=== PATIENT | male | born 1985 | race Two or more races ===

== ENCOUNTER 2020-09-23 10:51 | Outpatient (REF) | payer OTHER, SELFPAY | END 2020-09-23 10:52 | disposition home or self-care (01) | LOC: HO.HMGCLDS 10:51 | PROVIDERS: PCP Internal Medicine; Visit Provider Internal Medicine | DX: Z20.822 Contact with and (suspected) exposure to COVID-19 (principal) | CPT/HCPCS: C9803; U0003; U0005 ==

== ENCOUNTER 2021-07-23 08:19 | Emergency (ER) | payer OTHER, SELFPAY | END 2021-07-23 09:54 | disposition left against medical advice (07) | PROVIDERS: Emergency Provider Emergency Medicine | DX: S39.92XA Unspecified injury of lower back, initial encounter (principal); V49.9XXA Car occupant (driver) (passenger) injured in unspecified traffic accident, initial encounter; Y93.9 Activity, unspecified; Y92.9 Unspecified place or not applicable; Y99.9 Unspecified external cause status ==

== ENCOUNTER 2025-01-11 11:26 | Outpatient (AMB) | payer OTHER, SELFPAY ==
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
[2025-01-11 11:41] VITALS: BMI 26.3
== END 2025-01-11 12:28 | disposition home or self-care (01) ==
LOC: HO.HPHYS 11:27
PROVIDERS: PCP Family Medicine; Visit Provider Physician Assistant
DX: M54.16 Radiculopathy, lumbar region (principal); M47.816 Spondylosis without myelopathy or radiculopathy, lumbar region
CPT/HCPCS: 99204

== ENCOUNTER → 2025-01-11 11:26 | Outpatient (BNVA) | payer OTHER, SELFPAY | PROVIDERS: PCP Family Medicine; Visit Provider Physician Assistant | DX: M54.16 Radiculopathy, lumbar region (principal); M47.816 Spondylosis without myelopathy or radiculopathy, lumbar region | CPT/HCPCS: 99202 ==

== ENCOUNTER 2025-02-05 13:04 | Outpatient (AMB) | payer OTHER, SELFPAY ==
[2025-02-05 13:11] VITALS: BMI 26.3
--- NOTE | 2025-02-05 13:11 | A.PHYSOV_ITS ---
Vital Signs 02/05/25 13:11 Height 5 ft 7 in Weight 168 lb BMI 26.3 Intake Visit Reasons: MRI followup Intake Note: Patient is a 40 year old male in office today for his lumbar mri results. 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 He reports low back pain that extends across the middle from left to right, but is predominantly on the right side. The patient has previously tried oral steroids and nurse wound care, both of which provided temporary relief. Prior imaging has identified disc bulges at L3- 4 and L4-5, lumbar arthritis, moderate to severe foraminal narrowing, and a synovial cyst. The synovial cyst, located on the right, is a result of inflammation from facet joint arthritis and is contributing to nerve compression. Patient has failed conservative treatment. Has a pain level today of 7/10 primarily on the right side. Pain Description - Location: The patient reports back pain across the middle, from left to right, but feels it mostly on the right side. - Radiation: The patient denies that the pain goes into his back. - Relieving Factors: He experiences temporary relief from oral steroids and chiropractic adjustments. [facility] Surgical History (Updated 01/11/25 @ 11:46 by Barby Javed MA) H/O hernia repair (Unknown) History of carpal tunnel surgery (Unknown) Social History (Updated 01/11/25 @ 11:47 by Barby Javed MA) Alcohol intake: current Alcohol intake frequency: holidays/special occasions only Patient Tobacco Use Status: Former Tobacco user Substance Use Type: Marijuana Current occupational status: employed Review of Systems Narrative Review of Systems - Musculoskeletal: Reports back pain and shoulder pain. - Neurological: Denies pain radiating into his back. Physical Exam Exam Exam: Physical Exam Lumbar Spine: Examination of his lumbar spine, there is no visible swelling or deformity. He is tender to the right lower lumbar facets. He is otherwise nontender. Full range of motion of his lumbar spine. He does have an increase in pain with facet loading. Special Tests: Lhermittes sign was negative Heel Toe walk is normal Left straight leg raise: Negative Right straight leg raise: Negative Special tests Shonna test is negative Ganslen's test is negative SI Joint compression test negative Raymond test negative Piriformis stretch is negative Lower Extremities: Full range of motion bilateral lower extremities. No calf pain or edema. Neuro: Sensation: Intact to lower extremities bilaterally Strength L2 (Psoas): 5/5 on the left and 5/5 on the right. L3 (Quads): 5/5 on the left and 5/5 on the right. L4 (Ant tibialis): 5/5 on the left and 5/5 on the right. L5 (EHL) 5/5 on the left and 5/5 on the right. S1 (Gastroc): 5/5 on the left and 5/5 on the right. DTR L4: (Patellar) Left 2 Right 2 S1: (Achilles) Left 2 Right 2 Babinski Downgoing No pathologic clonus. No involuntary movement. Vital Signs: BMI result Body Mass Index 26.3 Assessment & Plan Assessment & Plan (1) Lumbar radiculopathy: Code(s): M54.16 - Radiculopathy, lumbar region Category: Medical (2) Lumbar spondylosis: Code(s): M47.816 - Spondylosis without myelopathy or radiculopathy, lumbar region Category: Medical Plan Pain Management - Analgesia: The patient has tried oral steroids, which he reports work temporarily. Plan Patient was informed and verbally consented to the use of an ambient scribe for clinic note documentation during this visit. 1. Low Back Pain The patient's low back pain is attributed to imaging findings of lumbar arthritis, disc bulges at L3-4 and L4-5, moderate to severe foraminal stenosis, and a synovial cyst on the right side causing nerve compression, which correlates with his predominantly right-sided symptoms. After discussing conservative options such as physical therapy, nurse wound care, and acupuncture, as well as surgical options, the plan is to proceed with an injection-based procedure. The procedure will target the right-sided facet joint to rupture the synovial cyst and will include a cortisone injection to decrease nerve inflammation. The expected benefit is at least a 50% reduction in symptoms for 3 to 6 months. Risks of infection, bleeding, and nerve injury were discussed, with the patient acknowledging the primary risk is lack of efficacy. The patient has elected to have the procedure performed under sedation. The procedure will be scheduled upon receipt of insurance authorization. 2. Shoulder Pain The patient mentioned shoulder pain, but this was not further evaluated during the visit. Discussion Notes I reviewed the patient's imaging findings with him, explaining that his low back pain is likely caused by a combination of lumbar arthritis, disc bulges at L3-4 and L4-5, foraminal narrowing, and a synovial cyst on the right side that is compressing a nerve. I outlined various treatment options, including conservative measures like physical therapy and nurse wound care, and more invasive options like surgery. I recommended a two-part injection procedure targeting the right side, which I believe will help both sides. The first part involves injecting fluid to rupture the cyst, and the second part involves a cortisone injection to calm the nerve inflammation. I informed the patient that this procedure could provide at least 50% relief for 3 to 6 months and is repeatable if effective, but is not a cure. We discussed the risks, including infection, bleeding, and nerve injury, and I noted that the most common negative outcome is that the procedure does not provide relief. The patient consented to the procedure and opted for sedation. I advised him that we would proceed with scheduling upon insurance authorization. Patient Instructions - Your back pain is caused by arthritis, bulging discs, and a fluid-filled sac called a cyst that is pressing on a nerve in your lower back. - We have discussed and planned a two-part injection procedure for your back to help with the pain. - The goal of the injection is to break the fluid sac and use a strong anti- inflammatory medicine (cortisone) to reduce swelling around the nerve. - You have decided to have sedation, meaning you will be asleep, for the procedure. - Possible risks include infection, bleeding, or nerve damage, but the most common outcome if it doesn't work is simply no change in your pain. - Our office will contact you to schedule the procedure as soon as your i nsurance gives its approval. - You can take time to think about this and discuss it with your family. Orders: Referrals Physiatry Procedure Notification M47.816 - Spondylosis without myelopathy or radiculopathy, lumbar region, M54.16 - Radiculopathy, lumbar region Coding Level of Care Code Tele Est Pt Level 3 (71733) Diagnoses Lumbar radiculopathy M54.16 Lumbar spondylosis M47.816
--- OUTSIDE RECORDS SUMMARY | 2025-02-05 17:12 | XMS_ITS | Encounter Summary ---
Author Organization [facility] Address [address] [place] [address] Care Team Providers Care Medical Apparatus Model Maker Name Role Phone Adrianna Hutton MD Primary Care Pr ovider Encounter Details Date Type Department Care Team (Late st Contact Info) Description 12/14/2024 Results Follow-Up Adult Medicine [address] [id number] Ann Dia PA [address] [place] [address] Social History Tobacco Use Types Packs/Day Years Used Date Smoking Tobacco: Never Smokeless Tobacco: Never Alcohol Use Standard Drinks/Week Comments Yes 0 (1 standard drink = 0.6 oz pur e alcohol) Housing Instability Answer Date Recorde d Are you worried that in the next 2 months you may not have stable housing? No 01/28/2024 Food Access & Nutrition Answer Date Rec orded Do you have access to a vari ety of food including fruits and vegetables? Yes 01/28/2024 Access to Healthcare Answer Date Record ed Within the last 3 months, ho w many times did you visit the emergency department for your medical care? 0 01/28/2024 Health Literacy Answer Date Recorded How often do you need to hav e someone help you when you read instructions, pamphlets, or other written material from your doctor or pharmacy? Patient declined 01/28/2024 Caregiver: How often do you need to have someone help you when you read instructions, pamphlets, or other written material from your doctor or pharmacy? Not on file 024 Financial Risk Answer Date Recorded How hard is it for you to pa y for the very basics like food, housing, medical care, and air conditioning / heating? Unable to respond 01/28/2024 Transportation Answer Date Recorded Has the lack of transportati on kept you from meetings, work, or from getting things needed for daily living? No Has the lack of transportati on kept you from medical appointments or from getting medications? No 01/28/2024 Social Isolation Answer Date Recorded How often do you feel lonely or isolated from those around you? Patient declined 01/28/2024 Food Risk Answer Date Recorded Within the past 12 months we worried whether our food would run out before we got money to buy more. Never true 01/28/2024 Within the past 12 months th e food we bought just didn't last and we didn't have money to get more. Never true 01/28/2024 Dependent Care Answer Date Recorded Do you need help finding or paying for care for your loved ones. For example, child psychology teacher or elderly care for an older adult? No 01/28/2024 Education Answer Date Recorded Do you think completing more education or training, like finishing a GED, going to college, or learning a trade, would be helpful for you? Patient declined 01/28/2024 Employment and Income Answer Date Recor ded During the last four weeks, have you been actively looking for work? Yes 01/28/2024 Living Situation Answer Date Recorded What is your living situation? Unrecognized valu e 01/28/2024 Sex and Gender Information Value Date Recorded Sex Assigned at Male 01/28/2024 1:45 PM EST Legal Sex Male 2:59 AM EST Gender Identity Male 01/28/2024 1:45 PM EST Sexual Orientation Not on file documented as of this encounter Plan of Treatment Not on file documented as of this encounter Visit Diagnoses Not on filedocumented in this encounter Additional Health Concerns Assessment Noted Time PHQ-9 Depression Total Score: 0 01/28/20 24 2:07 PM EST documented as of this encounter Care Teams Medical Apparatus Model Maker Relationship Specialty Start Date End Date Adrianna Hutton MD [address] [place] [phone] PCP - General 02/03/23 documented as of this encounter
--- OUTSIDE RECORDS SUMMARY | 2025-02-05 17:12 | XMS_ITS | Clinical Summary ---
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 10/25/2020 Active Active Problems Problem Noted Date Diagnosed Date Suicidal risk 10/22/2013 Marijuana use 04/11/2013 Major depression 04/11/2013 Encounters Date Type Department Care Team Description 01/20/2025 7:12 AM EST - 01/20/2025 11:59 PM EST Hospital Encounter [facility] MRI [address] [place] [id number] Intervertebral disc disorders with radiculopathy, lumbar region Discharge Disposition: Home or Self Care 12/14/2024 Results Follow-Up Adult Medicine [facility] [address], [place] [phone] Ann Dia PA 12/13/2024 4:31 PM EDT - 12/13/2024 11:59 PM EDT Hospital Encounter [facility] [address] [phone] Acute bilateral low back pain without sciatica Discharge Disposition: Home or Self Care 12/13/2024 4:00 PM EDT Office Visit Adult Medicine [address] [phone] Ann Dia PA Acute bilateral low back pain without sciatica (Primary Dx) 12/11/2024 Telephone Adult Medicine [address] [phone] Adrianna Hutton MD from Last 3 Months Immunizations Immunization Administration Dates Next Due Tdap Tetanus diptheria acell ular pertussis (Boostrix; Adacel) 7yo and older 02/02/2024,01/13/2012 Surgical History Surgery Date Site/Laterality Comments LITHOTRIPSY PROCEDURE: HISTORICAL LITHOTRIPSY Family History Medical History Relation Name Comments Asthma Sister 1 Asthma Sister 2 Autoimmune disease Neg Hx Breast cancer Neg Hx Colon cancer Neg Hx Coronary artery disease Neg Hx Diabetes Neg Hx Heart attack Neg Hx Heart failure Neg Hx Hyperlipidemia Neg Hx Hypertension Neg Hx Mental illness Neg Hx Prostate cancer Neg Hx Sleep apnea Neg Hx Thyroid disease Neg Hx Relation Name Status Comments Father Alive Maternal Grandfather Maternal Grandmother Mother Alive Paternal Grandfather Paternal Grandmother Sister 1 Alive Sister 2 Alive Social History Tobacco Use Types Packs/Day Years Used Date Smoking Tobacco: Never Smokeless Tobacco: Never Tobacco Cessation:Counseling Given: Not Answered Alcohol Use Standard Drinks/Week Comments Yes 0 [...] Record ed Within the last 3 months, zeeshan w many times did you visit the [...] care for your loved ones. For example, children's choir director or elderly care for an older adult? [...] PM EST Sexual Orientation Not on file Last Filed Vital Signs Vital Sign Reading Time Taken Comments Blood Pressure 128/71 12/13/2024 4:01 PM EDT Pulse 100 12/13/2024 4:01 PM EDT Temperature 36.8 C (98.3 F) 12/13/2024 4:01 PM EDT Respiratory Rate 16 12/13/2024 4:01 PM EDT Oxygen Saturation 99% 01/09/2024 7:56 AM EST Inhaled Oxygen Concentration - - Weight 76.2 kg (168 lb) 12/13/2024 4:01 PM EDT Height 170.2 cm (5' 7 ) 12/13/2024 4:01 PM EDT Body Mass Index 26.31 12/13/2024 4:01 PM EDT Plan of Treatment Health Maintenance Due Date Last Done Comments Hepatitis B Vaccines (1 of 3 - 19+ 3-dose series) 2002 HPV Vaccines (1 - 3-dose SCD M series) 2010 HIV Screening 01/31/2022 Medicare Annual Wellness Visit 01/31/2022 Depression Screening 02/29/2024 01/28/2024 COVID-19 Vaccine (3 - 2024-2 6 season) 2024 04/21/2021, 03/11/2021 Influenza Vaccine (#1) 2024 03/05/2008 Social Influencers of Health Screening 01/27/2025 01/28/2024 Cholesterol Screening (Lipid Panel) 02/26/2025 02/27/2020 DTaP,Tdap,and Td Vaccines (4 - Td or Tdap) 02/01/2034 02/02/2024, 09/05/2015, 01/13/2012 RSV Immunization Adult Patients (1 - 1-dose 75+ series) 2058 Hepatitis C Screening Completed 02/27/2020 HIB Vaccines Aged Out No longer eligi ble based on patient's age to complete this topic Hepatitis A Vaccines Aged Out No long er eligible based on patient's age to complete this topic IPV Vaccines Aged Out No longer eligi ble based on patient's age to complete this topic MMR Vaccines Aged Out No longer eligi ble based on patient's age to complete this topic Meningococcal ACWY Vaccine Aged Out N o longer eligible based on patient's age to complete this topic Meningococcal B Vaccine Aged Out No l onger eligible based on patient's age to complete this topic Pneumococcal Vaccine: Pediatrics (0 to 5 Years) and At-Risk Patients (6 to 49 Years) Aged Out No longer eligible b ased on patient's age to complete this topic RSV Immunization Patients Under 20 months Aged Out No longer eligible b ased on patient's age to complete this topic Varicella Vaccines Aged Out No longer eligible based on patient's age to complete this topic Procedures Procedure Name Priority Date/Time Associated Diagnosis Comments MR LUMBAR SPINE WO CONTRAST Routine 01/20/2025 7:55 AM EST Intervertebral disc disorders with radiculopathy, lumbar region XR LUMBAR SPINE 4+ VIEWS Routine 12/13/2024 4:39 PM EDT Acute bilateral low back pain without sciatica HM HEPATITIS C SCREENING Routine 02/27/2020 LIPID PANEL Routine 02/27/2020 from Last 3 Months or Most Recently Relevant to Health Maintenance Results * MR Lumbar Spine wo Contrast (01/20/2025 7:55 AM EST) Anatomical Region Laterality Modality L-spine, Spine Magnetic Resonan ce 01/23/2025 10:3 1 AM EST Impressions 01/23/2025 11:00 AM EST Degenerative changes throughout the lumbar spine, most pronounced at L3-4 and L4-5. -------- FINAL REPORT -------- Dictated By: DARRYL FIGUEROA Dictated Date: 01/23/2025 10:31 ET Assigned Physician: DARRYL FIGUEROA Reviewed and Electronically Signed By: DARRYL FIGUEROA Signed Date: 01/23/2025 11:00 ET Workstation ID: [id number] Transcribed By: Self Edit Transcribed Date: 01/23/2025 10:31 ET Narrative 01/23/2025 11:00 AM EST PROCEDURE: Lumbar spine MRI INDICATION: Pain, radiculopathy TECHNIQUE: Multiplanar, multisequence MRI of the Lumbar spine Without contrast. COMPARISON: No priors available. FINDINGS: Lumbar lordosis is maintained. No fracture or suspicious marrow replacing lesion. Degenerative loss of normal disc height and signal at L3-4 with associated type I degenerative Modic endplate changes. Lower lumbar predominant degenerative facet arthritis, most pronounced at L4-5. Conus medullaris is normal and terminates at L1. No epidural collection or mass is seen within the spinal canal. Paraspinal muscles are normal. Visualized intra-abdominal and pelvic structures are normal. Findings by level: L1-2: No focal disc protrusion, foraminal stenosis, or spinal canal stenosis. L2-3: No focal disc protrusion, foraminal stenosis, or spinal canal stenosis. L3-4: Diffuse disc bulge with small superimposed central extrusion extending slightly caudal posterior to L4. Mild spinal canal stenosis. Moderate foraminal stenosis laterally. L4-5: Diffuse disc bulge and bilateral facet arthropathy and ligamentum flavum thickening. Anteriorly projecting right facet synovial cyst extending into the right neural foramina. Moderate foraminal stenosis bilaterally. Mild spinal canal stenosis L5-S1: No focal disc protrusion, foraminal stenosis, or spinal canal stenosis. Procedure Note Darryl Figueroa MD - 01/23/2025 PROCEDURE: Lumbar spine MRI INDICATION: Pain, radiculopathy TECHNIQUE: Multiplanar, multisequence MRI of the Lumbar spine Withoutcontrast. COMPARISON: No priors available. FINDINGS: Lumbar lordosis is maintained. No fracture or suspicious marrow replacing lesion. Degenerative loss of normal disc height and signal at L3-4 with associatedtype I degenerative Modic endplate changes. Lower lumbar predominant degenerative facet arthritis, most pronounced atL4-5. Conus medullaris is normal and terminates at L1. No epidural collectionor mass is seen within the spinal canal. Paraspinal muscles are normal. Visualized intra-abdominal and pelvicstructures are normal. Findings by level: L1-2: No focal disc protrusion, foraminal stenosis, or spinal canalstenosis. L2-3: No focal disc protrusion, foraminal stenosis, or spinal canalstenosis. L3-4: Diffuse disc bulge with small superimposed central extrusionextending slightly caudal posterior to L4. Mild spinal canal stenosis.Moderate foraminal stenosis laterally. L4-5: Diffuse disc bulge and bilateral facet arthropathy and ligamentumflavum thickening. Anteriorly projecting right facet synovial cystextending into the right neural foramina. Moderate foraminal stenosisbilaterally. Mild spinal canal stenosis L5-S1: No focal disc protrusion, foraminal stenosis, or spinal canalstenosis. IMPRESSION: Degenerative changes throughout the lumbar spine, most pronounced at L3-4and L4- 5. -------- FINAL REPORT -------- Dictated By: DARRYL FIGUEROA Dictated Date: 01/23/2025 10:31 ET Assigned Physician: DARRYL FIGUEROA Reviewed and Electronically Signed By: DARRYL FIGUEROA Signed Date: 01/23/2025 11:00 ET Workstation ID: [id number] Transcribed By: Self Edit Transcribed Date: 01/23/2025 10:31 ET us Joseph JENSEN IMG MRI PROCEDURES Final Resul t * XR Lumbar Spine 4+ Views (12/13/2024 4:39 PM EDT) Anatomical Region Laterality Modality Spine, L-spine Radiographic Jo ging 12/13/2024 6:07 PM EDT Impressions 12/13/2024 6:07 PM EDT No acute fracture or dislocation of the lumbar spine. -------- FINAL REPORT -------- Dictated By: John Lu Dictated Date: 12/13/2024 18:07 ET Assigned Physician: John Lu Reviewed and Electronically Signed By: John Lu Signed Date: 12/13/2024 18:07 ET Workstation ID: [id number] Transcribed By: Self Edit Transcribed Date: 12/13/2024 18:07 ET Narrative 12/13/2024 6:07 PM EDT HISTORY: low back pain TECHNIQUE: 4 views of the lumbar spine COMPARISON: Lumbar spine radiograph from 09/20/2014 FINDINGS: Vertebral body height and disc spaces are preserved. No acute fracture or dislocation is seen. The spinal alignment is well maintained without evidence of spondylolisthesis. The sacroiliac joints are unremarkable. Procedure Note John Lu MD - 12/13/2024 HISTORY: low back pain TECHNIQUE: 4 views of the lumbar spine COMPARISON: Lumbar spine radiograph from 09/20/2014 FINDINGS: Vertebral body height and disc spaces are preserved. No acute fracture ordislocation is seen. The spinal alignment is well maintained withoutevidence of spondylolisthesis. The sacroiliac joints are unremarkable. IMPRESSION: No acute fracture or dislocation of the lumbar spine. -------- FINAL REPORT -------- Dictated By: John Lu Dictated Date: 12/13/2024 18:07 ET Assigned Physician: John Lu Reviewed and Electronically Signed By: John Lu Signed Date: 12/13/2024 18:07 ET Workstation ID: [id number] Transcribed By: Self Edit Transcribed Date: 12/13/2024 18:07 ET Ann JENSEN IMG XR PROCEDURES Final Resul t * Hm Hepatitis C Screening (02/27/2020) Hepatitis C Screening Abstracted Historical Provider HEALTH MAINTENANCE Final Result * (ABNORMAL) Lipid panel (02/27/2020) LDL/HDL Ratio 3 0 - 4 Triglycerides 74 0 - 150 mg/dL Cholesterol 164 0 - 200 mg/dL HDL 49 >=40 mg/dL LDL Cholesterol 101(A) 0 - 100 mg/dL Blood Venous blood specimen / Unknown Historical Provider LAB BLOOD ORDERABLES Lily l Result from Last 3 Months or Most Recently Relevant to Health Maintenance Insurance [employer] Member Subscriber Plan / Payer (Ef fective 2019-Present) Name:DAYNA ROUSE Relation to Subscriber:Self Name:Dayna Rouse JR, I Payer ID:[id number] Group ID:[id number] Type:Not on file Address: [place] [address] [place] [id number] 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
== END 2025-02-05 14:07 | disposition home or self-care (01) ==
LOC: HO.HPHYS 13:05
PROVIDERS: PCP Family Medicine; Visit Provider Physician Assistant
DX: M54.16 Radiculopathy, lumbar region (principal); M47.816 Spondylosis without myelopathy or radiculopathy, lumbar region
CPT/HCPCS: 99213

== ENCOUNTER → 2025-02-05 13:04 | Outpatient (BNVA) | payer OTHER, SELFPAY | PROVIDERS: PCP Family Medicine; Visit Provider Physician Assistant | DX: M47.26 Other spondylosis with radiculopathy, lumbar region (principal); M46.96 Unspecified inflammatory spondylopathy, lumbar region; M51.16 Intervertebral disc disorders with radiculopathy, lumbar region; M48.061 Spinal stenosis, lumbar region without neurogenic claudication; M25.511 Pain in right shoulder | CPT/HCPCS: 99212 ==